=== PATIENT | male | born 1985 | race Caucasian/White ===

== ENCOUNTER 2023-01-27 08:07 | Emergency (ER) | payer OTHER ==
[2023-01-27 08:25] VITALS: BP 132/82; PULSE 69; RESP 18; TEMP 98.3; BMI 35.5
[2023-01-27] MEDS ORDERED: TETRACAINE 0.5% HCL 0.6ML DROPPER.BOTTLE OS ONE (09:10)
[2023-01-27] MEDS ORDERED: TETRACAINE 0.5% OPHTH SOLN 2 ML BOTTLE ONE (09:21)
[2023-01-27] MEDS ORDERED: FLUORESCEIN NA 1 EA STRIP ONE (09:23)
[2023-01-27] MEDS ORDERED: FLUORESCEIN NA 1 EA STRIP OS ONE (09:23)
[2023-01-27] MEDS ORDERED: ERYTHROMYCIN 0.5% OPHTHALMIC OINTMENT 3.5 GM TUBE OS STA (11:44)
== END 2023-01-27 12:15 | disposition home or self-care (01) ==
LOC: JER 08:07
DX: H57.12 Ocular pain, left eye (principal); H57.89 Other specified disorders of eye and adnexa; S05.02XA Injury of conjunctiva and corneal abrasion without foreign body, left eye, initial encounter; X58.XXXA Exposure to other specified factors, initial encounter
CPT/HCPCS: 99284-25

== ENCOUNTER 2024-05-28 19:15 | Emergency (ER) | payer OTHER ==
[2024-05-28 19:34] VITALS: BP 137/87; PULSE 80; RESP 18; TEMP 97.7; BMI 28.7
[2024-05-28] MEDS ORDERED: KETOROLAC TROMETHAMINE 30 MG/1 ML VIAL ONE (20:41)
[2024-05-28] MEDS ORDERED: METHOCARBAMOL 500 MG TABLET ONE (20:41)
[2024-05-28] MEDS: KETOROLAC TROMETHAMINE 30 MG/1 ML VIAL IM ONE (20:46)
[2024-05-28] MEDS: METHOCARBAMOL 500 MG TABLET PO ONE (20:46)
== END 2024-05-28 21:41 | disposition home or self-care (01) ==
LOC: JER 19:15 → JERFT 19:15
PROC: 3E0133Z Introduction of Anti-inflammatory into Subcutaneous Tissue, Percutaneous Approach (ICD-10-PCS; principal; 2024-05-28)
DX: M54.50 Low back pain, unspecified (principal)
CPT/HCPCS: 72100-TC-FY; 99284-25